=== PATIENT | female | born 1995 | race Caucasian/White ===

== ENCOUNTER 2024-03-03 22:03 | Emergency (ER) | payer SELFPAY ==
[~2024-03-03] VITALS: Ht 147.3 cm; Wt 60.0 kg
[2024-03-03 22:07] VITALS: O2SAT 99
[2024-03-03] MEDS: TETRACAINE 0.5% OPHTH DROPS 4ML BOTHEYE ONE (23:30)
[2024-03-03] MEDS: FLUORESCEIN SODIUM 1MG/STRIP BOTHEYE ONE (23:30)
[2024-03-04] MEDS ORDERED: NAPH15DR69 OP (00:03)
[2024-03-04 01:14] VITALS: BP 128/77; PULSE 67; RESP 16; TEMP 98.5
== END 2024-03-04 01:17 | disposition home or self-care (01) ==
LOC: ER 22:03
DX: H10.9 Unspecified conjunctivitis (principal); E11.9 Type 2 diabetes mellitus without complications
CPT/HCPCS: 99283